=== PATIENT | female | born 2000 | race African-American/Black ===

== ENCOUNTER → 2024-11-26 | Outpatient (REF) | payer BC ==
[~2024-11-26] MED LIST: IOPAMIDOL 370 MG/ML 100 ML INFUS..BTL INJ ONE; SODIUM CHLORIDE 0.9% 100 ML ONE
== END ==
LOC: CT 11:27
PROVIDERS: ATTEND Nurse Practitioner
DX: M79.A21 Nontraumatic compartment syndrome of right lower extremity (principal); M79.A22 Nontraumatic compartment syndrome of left lower extremity; I77.89 Other specified disorders of arteries and arterioles
CPT/HCPCS: 75635; 81025; J7050; Q9967

== ENCOUNTER 2025-02-28 06:24 | Day surgery (SDC) | payer BC ==
[2025-02-26 12:58] LABS: BASOPHILS % 0.4 % (0.0-1.0); EOSINOPHILS % 4.2 % (0.0-6.0); LYMPHOCYTES % 26.6 % (18.0-39.1); MONOCYTES % 8.1 % (4.4-11.3); NEUTROPHILS % 60.6 % (38.7-80.0); RED CELL DISTRIBUTION WIDTH 14.4 % (11.7-14.4)
[2025-02-26 13:13] LABS: EST GLOMERULAR FILTRATION RATE 95.0 ML/MIN (>=60)
[2025-02-28] VITALS (7 sets, daily range): BP systolic 117–131; BP diastolic 68–87; PULSE 83–100; RESP 13–20; TEMP 98.8; O2SAT 99–100
[~2025-02-28] VITALS: Ht 167.6 cm; Wt 83.9 kg
[2025-02-28] MEDS: DIPHENHYDRAMINE HCL 25 MG CAP ONE (07:15)
[2025-02-28] MEDS: FAMOTIDINE 20 MG/2 ML VIAL IV ONE (07:16)
[2025-02-28] MEDS: METHYLPREDNISOLONE SOD SUCC 125 MG/2ML VIAL ONE (07:16)
[2025-02-28] MEDS ORDERED: HEPARIN SOD (PORCINE) 1000 UNIT/ML 30ML ONE (07:17)
[2025-02-28] MEDS ORDERED: NITROGLYCERIN/D5W 200 MCG/ML 250 ML ONE (07:18)
[2025-02-28] MEDS ORDERED: HEPARIN SOD/SOD CHLORIDE 2,000 ML ONE (07:18)
[2025-02-28] MEDS ORDERED: LIDOCAINE HCL 2% LOCAL 20 ML VIAL ONE (07:18)
[2025-02-28] MEDS ORDERED: IOPAMIDOL 370 MG/ML 100 ML INFUS..BTL INJ ONE (07:18)
[2025-02-28] MEDS ORDERED: SODIUM CHLORIDE 0.9% 1000ML 2,000 ML ONE (07:18)
[2025-02-28] MEDS ORDERED: MIDAZOLAM HCL 2 MG/2 ML VIAL ONE (08:20)
[2025-02-28] MEDS ORDERED: FENTANYL CITRATE/PF 100MCG/2 ML INJ ONE (08:20)
== END 2025-02-28 11:15 | disposition home or self-care (01) ==
LOC: CATH LAB 06:24
PROVIDERS: ATTEND Surgery Vascular Surgery
DX: M79.A21 Nontraumatic compartment syndrome of right lower extremity (principal); M79.A22 Nontraumatic compartment syndrome of left lower extremity; I77.89 Other specified disorders of arteries and arterioles; Z91.013 Allergy to seafood; Z01.812 Encounter for preprocedural laboratory examination
CPT/HCPCS: 36247; 36415; 75625; 75716; 80053; 85025; C1760; C1769 ×2; C1887; C1894; J1308; J1644; J2003; J2250; J2919; J3010; J7030; Q9967; 36246; 99152; 99153